=== PATIENT | female | born 1955 | race Two or more races ===

== ENCOUNTER → 2019-07-19 | Emergency (ER) | payer OTHER ==
[~2019-07-19] VITALS: Ht 165.1 cm; Wt 77.1 kg
[~2019-07-19] MED LIST: AMOX1TAB12 PO; CIPRO500 MG PO; DICLOFENAC SODI75 MG PO; HAYZAAR; JANUMET 50-5001 EACH PO; NORFLEX100MG PO; PYRIDIUM100 MG PO; SINGULAIR 10MG10 MG PO; SYNTHROID125 MCG PO; SYNTHROID50 MCG PO; ZOCOR40 MG PO
== END | disposition home or self-care (01) ==
LOC: ER 16:22
DX: M62.830 Muscle spasm of back (principal)